=== PATIENT | male | born 1975 | race Hispanic/Latino ===

== ENCOUNTER 2017-04-23 07:51 | Day surgery (SDC) | payer BC ==
[2017-04-23 08:15] VITALS: BMI 46.1
[2017-04-23] MEDS ORDERED: Propofol 10 mg/ml Inj (20 ML) ONE (09:09)
[2017-04-23] MEDS ORDERED: Lidocaine Hydrochloride 5 ML INJ ONE (09:15)
[2017-04-23] MEDS ORDERED: Lactated Ringer's 500 ML IV ONE (09:18)
[2017-04-23] MEDS ORDERED: Midazolam 2 MG/2 ML VIAL ONE (09:20)
[2017-04-23] MEDS ORDERED: Lactated Ringer's 500 ML IV SCH (09:45)
[2017-04-23 10:27] VITALS: PULSE 70; TEMP 98
[2017-04-23 10:34] VITALS: BP 128/63; RESP 21; O2SAT 98
== END 2017-04-23 10:30 | disposition home or self-care (01) ==
LOC: C.ENDO 07:51
PROVIDERS: ATTEND Internal Medicine Gastroenterology
DX: Z01.818 Encounter for other preprocedural examination (principal); E66.01 Morbid (severe) obesity due to excess calories; K25.7 Chronic gastric ulcer without hemorrhage or perforation; Z68.42 Body mass index [BMI] 45.0-49.9, adult
CPT/HCPCS: 43239; 88305; J2250; J2704; J7120